=== PATIENT | female | born 1935 | race Caucasian/White ===

== ENCOUNTER 2018-08-27 22:18 | Inpatient (IN) | payer OTHER, MEDICARE ==
--- NOTE | 2018-08-27 22:31 | PDOC ---
History of Present Illness - General Stated Complaint: DIARRHEA Time Seen by Provider: 08/27/18 22:29 - History of Present Illness Initial Comments: 08/27/18 23:36 The patient is an 82 year old female with a history of HTN, HLD, Hemorrhoids who presents for evaluation of diarrhea, rectal bleeding, and generalized weakness. The patient is accompanied by family who assist in providing the history. They note that the patient began having rectal bleeding a profuse diarrhea today with associated generalized weakness prompting her presentation to the ED for further evaluation. The patient otherwise denies fevers, chills, SOB, chest pain, nausea, vomiting, abdominal pain, or changes with urination. Past History - Past Medical History Allergies/Adverse Reactions: Allergies Allergy/AdvReac Type Severity Reaction Status Date / Time No Known Allergies Allergy Verified 08/27/18 23:09 Home Medications: Ambulatory Orders Unobtainable 08/27/18 Review of Systems - Review of Systems Comments:: 08/27/18 23:38 Constitutional: No fevers, chills, fatigue, malaise HEENT: No Rhinorrhea, nasal congestion, visual changes Cardiovascular: No chest pain, syncope, palpitations, lightheadedness Respiratory: No Cough, SOB, Hemoptysis, Gastrointestinal: Diarrhea, rectal bleeding. No Abdominal pain, Nausea, Vomiting, Constipation, Melena Genitourinary: No Dysuria, Frequency, Urgency, Hesitancy, Hematuria, Flank pain Musculoskeletal: No Myalgia, arthralgia Skin: No rashes, itching, bruising, pallor Neurologic: No Headache, Dizziness, Numbness, Weakness, or Tingling Psychiatric: No Hallucinations. No SI or HI *Physical Exam - Physical Exam Comments: 08/27/18 23:39 General Appearance: Nourished. No Apparent Distress HEENT: No Pharyngeal Erythema, Tonsillar Exudate, Tonsillar Erythema Neck: No Cervical Lymphadenopathy Respiratory/Chest: Lungs Clear, Normal Breath Sounds. No Crackles, Rales, Rhonchi, Wheezing Cardiovascular: Regular Rhythm, Regular Rate. No Murmur, Gallops, Rubs Gastrointestinal/Abdominal: Normal Bowel Sounds, Soft. No Guarding, Rebound, Tenderness Rectal Exam: External hemorrhoid noted. Loose stool noted. Non-impacted soft stool in rectal vault. Musculoskeletal: No CVA Tenderness Extremity: Normal Capillary Refill Integumentary: Normal Color, Dry, Warm Neurologic: Fully Oriented, Alert, Normal Mood/Affect, Normal Response, ED Treatment Course - LABORATORY CBC & Chemistry Diagram: 08/27/18 23:13 08/27/18 23:13 Medical Decision Making - Medical Decision Making 08/27/18 23:50 The patient is an 82 year old female with a history of HTN, HLD, Hemorrhoids who presents for evaluation of diarrhea, rectal bleeding, and generalized weakness. Differential includes but is not limited to: Colitits, Diverticulitis , gastroenteritis, infectious, metabolic derangement. Given the patient's history and physical exam, we will obtain a cbc, cmp, lactate, ekg, and CT abdomen/pelvis to evaluate further. We will treat the patient with iv fluids and continue to monitor and reassess while here in the ED. 08/28/18 02:43 CBC demonstrates an elevated wbc to 19.5. CMP demonstrates a potassium of 5.6 and creatinine of 3.9. Lactate is elevated to 4.4. CT abdomen/pelvis demonstrates findings consistent with a sigmoid colitis as preliminarily read by our cash reconciliation specialist radiologist. We will treat with patient with flagyl and levaquin here in the ED and she will require admission for further management. We discussed the case with Dr. Poe who accepted the patient for admission. *DC/Admit/Observation/Transfer Diagnosis at time of Disposition: Colitis - Discharge Dispostion Condition at time of disposition: Stable Decision to Admit order: Yes - Referrals - Patient Instructions - Post Discharge Activity
[2018-08-27] MEDS ORDERED: SODIUM CHLORIDE 1,000 ML IV STA (23:04)
[2018-08-27 23:45] LABS: BASO % 0.2 % (0-2.0); HEMATOCRIT 30.7 % (32.4-45.2); HEMOGLOBIN 9.9 GM/dL (10.7-15.3); LYMPH % 3.4 % (8-40); MCHC 32.1 g/dl (32.0-36.0); MEAN CELL VOLUME 90.5 fl (80-96); MEAN PLT VOLUME 8.4 fl (7.5-11.1); MONO % 5.2 % (3.8-10.2); NEUT % 91.2 % (42.8-82.8); PLATELET COUNT 336 K/MM3 (134-434); RBC 3.39 M/mm3 (3.60-5.2); RDW 15.9 % (11.6-15.6); WHITE BLOOD COUNT 19.5 K/mm3 (4.0-10.0)
[2018-08-28 00:17] LABS: ALBUMIN 3.1 g/dl (3.4-5.0); ALK PHOS 140 U/L (45-117); ANION GAP 14 MMOL/L (8-16); BILIRUBIN,TOTAL 0.6 mg/dL (0.2-1); BLOOD UREA NITROGEN 66 mg/dL (7-18); CALCIUM 9.3 mg/dL (8.5-10.1); CHLORIDE 100 mmol/L (98-107); CO2 22 mmol/L (21-32); CREATININE 3.9 mg/dL (0.55-1.3); GLUCOSE,RANDOM 128 mg/dL (74-106); POTASSIUM 5.6 mmol/L (3.5-5.1); SGOT/AST 69 U/L (15-37); SGPT/ALT 18 U/L (13-61); SODIUM 136 mmol/L (136-145); TOT PROT 6.8 g/dl (6.4-8.2)
--- NOTE | 2018-08-28 00:23 | PDOC ---
Attending Attestation - Resident Resident Name: Shmuel Garibay - ED Attending Attestation I have performed the following: I have examined & evaluated the patient, The case was reviewed & discussed with the resident, I agree w/resident's findings & plan, Exceptions are as noted - HPI HPI: 08/28/18 00:19 The patient is a 82 year old female, with a significant past medical history of HTN, HLD, and anxiety, hip surgery 3 weeks ago who presents to the emergency department with 1 day of diarrhea and rectal bleeding. Patients family is unaware of the exact quantity of her rectal bleeding but state she has loose BM every time she eats or drinks. They state her stool is mostly brown with some streaks of blood. No large volumes of bleeding in diaper. Pt called in by Dr. Dunn, for labs, CT, and admission. She denies recent fevers, chills, headache or dizziness. She denies recent nausea, vomit, or constipation. She denies recent dysuria, frequency, urgency or hematuria. She denies recent chest pain or shortness of breath. Allergies: NKDA Past surgical history: Hip replacement. Social history: Nonsmoker. Denies EtOH use and recreational drug use. Primary Care Physician: Dr. Dunn - Physicial Exam PE: 08/28/18 00:22 agree with resident exam - Medical Decision Making 08/28/18 00:22 82yo F with MMP presents many episodes of diarrhea today and some streaks of bleeding. Pt has hemorrhoid, likely cause of bleeding. Stool occult negative. High concern for cdiff given recent hospitalization for hip surgery, and possible memo-op antibiotics although family unsure. Plan for labs, CT, admission. 08/28/18 02:38 WBC 20 with 14% bands baseball glove stuffer 3.9, BUN 66, K 5.6 lactic 4.4 Pt given 2L NS, will rpt lactic and BMP CT with sigmoid colitis Pt covered with levaquin and flagyl for presumed colitis Case discussed with Dr. Dunn, pt admitted Case discussed in detail with admitting physician including history, physical exam and ancillary studies. Admitting physician has assumed care for the patient, will follow all pending diagnostics and will complete the evaluation and treatment. Heart Score/ECG Review #1 08/28/18 02:51 Normal sinus rhythm, rate 95. Normal axis and intervals. Sub 1mm STD in I, Avl, when compared to EKG from 04/06/2010, no significant change.
[2018-08-28] MEDS ORDERED: SODIUM CHLORIDE 1,000 ML IV STA (00:41)
[2018-08-28 01:52] LABS: ANISOCYTOSIS 1+; MACROCYTOSIS 0; PLATELET ESTIMATE NORMAL
[2018-08-28 05:40] LABS: ANION GAP 11 MMOL/L (8-16); BLOOD UREA NITROGEN 66 mg/dL (7-18); CALCIUM 7.6 mg/dL (8.5-10.1); CHLORIDE 109 mmol/L (98-107); CO2 20 mmol/L (21-32); CREATININE 3.2 mg/dL (0.55-1.3); GLUCOSE,RANDOM 110 mg/dL (74-106); POTASSIUM 5.1 mmol/L (3.5-5.1); SODIUM 140 mmol/L (136-145)
[2018-08-28] MEDS: DEXTROSE 5%-0.45% SALINE 1,000 ML IV SCH (06:56)
--- NOTE | 2018-08-28 08:50 | HP ---
Admitting History and Physical - Primary Care Physician PCP: Sabrina Dunn - Admission Chief Complaint: diarrhea History of Present Illness: patient has been constipated for 5 days, yesterday developed diarrhea with some rectal bleeding, diarrhea became worse with extreme weakness, so pt was sent to er for further evaluation denies fever, chills, mildly nauseated,no abdominal cramps or discomfort of note patient had elective right total hip replacement 4 weeks ago History Source: Patient, Family Member Limitations to Obtaining History: No Limitations - Past Medical History Cardiovascular: Yes: HTN Renal/: Yes: Renal Inusuff (CKD) ...: No Heme/Onc: Yes: Anemia (likely due to CKD, received epoetin prior to elective hip surgery in June-2017) Musculoskeletal: Yes: Osteoarthritis - Past Surgical History Past Surgical History: Yes: Joint Replacement (right total hip 07.30.2018) - Smoking History Smoking history: Never smoked - Alcohol/Substance Use Hx Alcohol Use: No Home Medications - Allergies Allergies/Adverse Reactions: Allergies Allergy/AdvReac Type Severity Reaction Status Date / Time No Known Allergies Allergy Verified 08/27/18 23:09 - Home Medications Home Medications: Ambulatory Orders Unobtainable 08/27/18 Family Disease History - Family Disease History Family History: Unremarkable Review of Systems - Review of Systems Constitutional: reports: Lethargy, Loss of Appetite, Weakness Eyes: reports: No Symptoms HENT: reports: No Symptoms Neck: reports: No Symptoms Cardiovascular: reports: No Symptoms Respiratory: reports: No Symptoms Gastrointestinal: reports: Constipation (prior to diarrhea for 5 days), Diarrhea , Rectal Bleeding. denies: Abdominal Pain, Bloating, Indigestion, Nausea, Vomiting Blood Genitourinary: reports: No Symptoms Musculoskeletal: reports: Joint Pain (right hip) Integumentary: reports: No Symptoms Neurological: reports: No Symptoms, Other (forgetful) Endocrine: reports: No Symptoms Psychiatric: reports: Anxiety (very anxious at baseline) Physical Examination Vital Signs: Vital Signs Temperature 98.6 F 08/28/18 08:42 Pulse Rate 97 H 08/28/18 08:42 Respiratory Rate 18 08/28/18 08:42 Blood Pressure 152/69 08/28/18 08:42 O2 Sat by Pulse Oximetry (%) 97 08/28/18 04:46 Constitutional: Yes: Calm, Thin Eyes: Yes: Conjunctiva Clear HENT: Yes: Atraumatic, Normocephalic Neck: Yes: Trachea Midline Cardiovascular: Yes: Regular Rate and Rhythm Respiratory: Yes: CTA Bilaterally Gastrointestinal: Yes: Distention (slightly distended), Hypoactive Bowel Sounds , Other (recta) ...Rectal Exam: Yes: Hemorrhoids/External Renal/: Yes: WNL Musculoskeletal: Yes: Other Extremities: Yes: WNL Edema: No Peripheral Pulses WNL: Yes Peripheral Pulses: Left Doralis Pedis: 1+, Right Dorsalis Pedis: 1+ Integumentary: Yes: Other (senile purpura over arms and legs) Neurological: Yes: WNL, Other (forgetful) Psychiatric: Yes: WNL Labs: CBC, BMP 08/27/18 23:13 08/28/18 05:14 Laboratory Tests 08/27/18 08/27/18 08/27/18 22:45 23:13 23:13 WBC 19.5 H RBC 3.39 L Hgb 9.9 L Hct 30.7 L MCV 90.5 MCH 29.0 MCHC 32.1 RDW 15.9 H Plt Count 336 MPV 8.4 Absolute Neuts (auto) 17.7 H Neutrophils % 91.2 H Neutrophils % (Manual) 77.0 Band Neutrophils % 14.0 Lymphocytes % 3.4 L Lymphocytes % (Manual) 4.0 L Monocytes % 5.2 Monocytes % (Manual) 2 L Eosinophils % 0.0 Eosinophils % (Manual) 0.0 Basophils % 0.2 Basophils % (Manual) 0.0 Myelocytes % (Man) 3 H Promyelocytes % (Man) 0 Blast Cells % (Manual) 0 Nucleated RBC % 0 Metamyelocytes 0 Hypochromia 0 Platelet Estimate Normal Polychromasia 0 Poikilocytosis 1+ Anisocytosis 1+ Microcytosis 1+ Macrocytosis 0 Sodium 136 Potassium 5.6 H Chloride 100 Carbon Dioxide 22 Anion Gap 14 BUN 66 H Creatinine 3.9 H Creat Clearance w eGFR 10.98 Random Glucose 128 H Lactic Acid Calcium 9.3 Total Bilirubin 0.6 AST 69 H ALT 18 Alkaline Phosphatase 140 H Total Protein 6.8 Albumin 3.1 L Stool Occult Blood Negative 08/27/18 08/28/18 08/28/18 23:13 05:13 05:14 WBC RBC Hgb Hct MCV MCH MCHC RDW Plt Count MPV Absolute Neuts (auto) Neutrophils % Neutrophils % (Manual) Band Neutrophils % Lymphocytes % Lymphocytes % (Manual) Monocytes % Monocytes % (Manual) Eosinophils % Eosinophils % (Manual) Basophils % Basophils % (Manual) Myelocytes % (Man) Promyelocytes % (Man) Blast Cells % (Manual) Nucleated RBC % Metamyelocytes Hypochromia Platelet Estimate Polychromasia Poikilocytosis Anisocytosis Microcytosis Macrocytosis Sodium 140 Potassium 5.1 Chloride 109 H Carbon Dioxide 20 L Anion Gap 11 BUN 66 H Creatinine 3.2 H Creat Clearance w eGFR 13.80 Random Glucose 110 H Lactic Acid 4.4 H* 2.2 H* Calcium 7.6 L Total Bilirubin AST ALT Alkaline Phosphatase Total Protein Albumin Stool Occult Blood Imaging - Results Cat Scan: Report Reviewed (prelim shows sigmoid colitis and constipation) Problem List - Problems (1) Hypertension Code(s): I10 - ESSENTIAL (PRIMARY) HYPERTENSION Qualifiers: Hypertension type: essential hypertension Qualified Code(s): I10 - Essential (primary) hypertension (2) Anxiety Code(s): F41.9 - ANXIETY DISORDER, UNSPECIFIED (3) Anemia Code(s): D64.9 - ANEMIA, UNSPECIFIED Qualifiers: Anemia type: due to chronic kidney disease Chronic kidney disease stage: stage 3 (moderate) Qualified Code(s): N18.3 - Chronic kidney disease, stage 3 (moderate); D63.1 - Anemia in chronic kidney disease (4) Colitis Code(s): K52.9 - NONINFECTIVE GASTROENTERITIS AND COLITIS, UNSPECIFIED (5) Dehydration Code(s): E86.0 - DEHYDRATION Assessment/Plan iv fluids iv abx received levaquin in er will redose tomorrow based on renal fnct stool culture GI eval requested
[2018-08-28] MEDS: HEPARIN NA (PORCINE) 5,000 UNITS/ML 1ML VIAL SQ SCH ×2 (10:00→22:41)
--- NOTE | 2018-08-28 12:51 | EKG ---
Test Reason : Blood Pressure : / mmHG Vent. Rate : 095 BPM Atrial Rate : 095 BPM P-R Int : 132 ms QRS Dur : 070 ms QT Int : 358 ms P-R-T Axes : 068 057 079 degrees QTc Int : 449 ms NORMAL SINUS RHYTHM NONSPECIFIC ST ABNORMALITY ABNORMAL ECG Confirmed by MD MICHAEL, FRANCESCO ([id number]) on 08/28/2018 12:50:51 PM Referred By: Confirmed By:FRANCESCO RODRIGUEZ MD
[2018-08-28] MEDS ORDERED: PHENYLEPH/MINERAL OIL/PETROLAT 28 GM OINTMENT RC PRN (13:21)
--- NOTE | 2018-08-28 18:24 | CON.GI ---
Consult Consult Specialty:: Gastroenterology Referred by:: Dr. Sabrina Dunn Reason for Consultation:: Diarrhea and rectal bleeding - History of Present Illness Chief Complaint: None at present History of Present Illness: 82F was BIBA who reports that she was c/o diarrhea and rectal bleeding. Babita denies abdominal pain or vomiting. She has not had any bleeding since arriving. CT scan reveals a fecal impaction, WBC of 19k , renal failure and a Hb of 9.9. Her daughter Aletha helped to provide this history. Babita was found to be anemic in preparation for her THR which was delayed until her Hb improved from 8 to 11 with infusions, presumably iron by a superintendent overhead distribution, Dr. Murphy in [place]. Babita has never had an EGD or colonoscopy. There is no h/o malignancy in her family. She had a right THR at [facility] 3 weeks ago and has been getting physical therapy at home. Her grandchildren and daughter have been taking turns watching her at home. Since the surgery she has been having frequent small volume stools and intermittent blood on toilet paper after wiping. - History Source History Provided By: Patient, Significant Other Limitations to Obtaining History: No Limitations - Past Medical History Cardio/Vascular: Yes: HTN, Hyperlipdemia Renal/: Yes: Renal Inusuff (CKD) ...: No Heme/Onc: Yes: Anemia (Hb 8 preoperatively) Psych: Yes: Anxiety Musculoskeletal: Yes: Osteoarthritis - Past Surgical History Past Surgical History: Yes: Cataract Removal, (x2), Joint Replacement (right total hip 07.30.2018) - Alcohol/Substance Use Hx Alcohol Use: Yes (rare) History of Substance Use: reports: None - Smoking History Smoking history: Former smoker If you are a former smoker, when did you quit?: rare occaisonal cigarette remotely - Social History Usual Living Arrangement: Alone ADL: Family Assistance Occupation: retired typing secretary Place of : [facility] Home Medications - Allergies Allergies/Adverse Reactions: Allergies Allergy/AdvReac Type Severity Reaction Status Date / Time No Known Allergies Allergy Verified 08/27/18 23:09 - Home Medications Home Medications: Ambulatory Orders Unobtainable 08/27/18 Family Disease History - Family Disease History Family Disease History: Other: Father (lived into his 80's), Mother ( CVA age 87) Review of Systems - Review of Systems Constitutional: reports: Weakness Eyes: reports: No Symptoms HENT: reports: No Symptoms Neck: reports: No Symptoms Cardiovascular: reports: No Symptoms Respiratory: reports: No Symptoms Gastrointestinal: reports: Diarrhea (frequent small volume stools), Rectal Bleeding Musculoskeletal: reports: Joint Pain Physical Exam-GI Vital Signs: Vital Signs Temperature 98.5 F 08/28/18 14:51 Pulse Rate 93 H 08/28/18 14:51 Respiratory Rate 18 08/28/18 14:51 Blood Pressure 140/62 08/28/18 14:51 O2 Sat by Pulse Oximetry (%) 98 08/28/18 09:00 CBC,CMP WBC 19.5 K/mm3 (4.0-10.0) H 08/27/18 23:13 RBC 3.39 M/mm3 (3.60-5.2) L 08/27/18 23:13 Hgb 9.9 GM/dL (10.7-15.3) L 08/27/18 23:13 Hct 30.7 % (32.4-45.2) L 08/27/18 23:13 MCV 90.5 fl (80-96) 08/27/18 23:13 MCH 29.0 pg (25.7-33.7) 08/27/18 23:13 MCHC 32.1 g/dl (32.0-36.0) 08/27/18 23:13 RDW 15.9 % (11.6-15.6) H 08/27/18 23:13 Plt Count 336 K/MM3 (134-434) 08/27/18 23:13 MPV 8.4 fl (7.5-11.1) 08/27/18 23:13 Absolute Neuts (auto) 17.7 K/mm3 (1.5-8.0) H 08/27/18 23:13 Neutrophils % 91.2 % (42.8-82.8) H 08/27/18 23:13 Neutrophils % (Manual) 77.0 % (42.8-82.8) 08/27/18 23:13 Band Neutrophils % 14.0 % 08/27/18 23:13 Lymphocytes % 3.4 % (8-40) L 08/27/18 23:13 Lymphocytes % (Manual) 4.0 % (8-40) L 08/27/18 23:13 Monocytes % 5.2 % (3.8-10.2) 08/27/18 23:13 Monocytes % (Manual) 2 % (3.8-10.2) L 08/27/18 23:13 Eosinophils % 0.0 % (0-4.5) 08/27/18 23:13 Eosinophils % (Manual) 0.0 % (0-4.5) 08/27/18 23:13 Basophils % 0.2 % (0-2.0) 08/27/18 23:13 Basophils % (Manual) 0.0 % (0-2.0) 08/27/18 23:13 Myelocytes % (Man) 3 % (0-2) H 08/27/18 23:13 Promyelocytes % (Man) 0 % (0-2) 08/27/18 23:13 Blast Cells % (Manual) 0 % (0-0) 08/27/18 23:13 Nucleated RBC % 0 % (0-0) 08/27/18 23:13 Metamyelocytes 0 % (0-2) 08/27/18 23:13 Hypochromia 0 08/27/18 23:13 Platelet Estimate Normal 08/27/18 23:13 Polychromasia 0 08/27/18 23:13 Poikilocytosis 1+ 08/27/18 23:13 Anisocytosis 1+ 08/27/18 23:13 Microcytosis 1+ 08/27/18 23:13 Macrocytosis 0 08/27/18 23:13 Sodium 140 mmol/L (136-145) 08/28/18 05:14 Potassium 5.1 mmol/L (3.5-5.1) 08/28/18 05:14 Chloride 109 mmol/L (98-107) H 08/28/18 05:14 Carbon Dioxide 20 mmol/L (21-32) L 08/28/18 05:14 Anion Gap 11 MMOL/L (8-16) 08/28/18 05:14 BUN 66 mg/dL (7-18) H 08/28/18 05:14 Creatinine 3.2 mg/dL (0.55-1.3) H 08/28/18 05:14 Creat Clearance w eGFR 13.80 (>60) 08/28/18 05:14 Random Glucose 110 mg/dL (74-106) H 08/28/18 05:14 Lactic Acid 2.2 mmol/L (0.4-2.0) H* 08/28/18 05:13 Calcium 7.6 mg/dL (8.5-10.1) L 08/28/18 05:14 Total Bilirubin 0.6 mg/dL (0.2-1) 08/27/18 23:13 AST 69 U/L (15-37) H 08/27/18 23:13 ALT 18 U/L (13-61) 08/27/18 23:13 Alkaline Phosphatase 140 U/L (45-117) H 08/27/18 23:13 Total Protein 6.8 g/dl (6.4-8.2) 08/27/18 23:13 Albumin 3.1 g/dl (3.4-5.0) L 08/27/18 23:13 Current Medications Generic Name Dose Route Start Last Admin Trade Name Freq PRN Reason Stop Dose Admin Acetaminophen 650 mg 08/28/18 06:18 Tylenol - PO Q6H PRN PAIN 1-5 OR FEVER Heparin Sodium (Porcine) 5,000 unit 08/28/18 10:00 08/28/18 10:00 Heparin - SQ 5,000 unit BID HARITHA Administration Metronidazole 500 mg in 100 mls @ 100 mls/hr 08/28/18 09:00 08/28/18 17:04 Flagyl 500mg Premixed Ivpb - IVPB 100 mls/hr Q6H-IV HARITHA Administration Dextrose/Sodium Chloride 1,000 mls @ 100 mls/hr 08/28/18 06:30 08/28/18 06:56 D5-1/2ns - IV 100 mls/hr ASDIR HARITHA Administration Constitutional: Yes: Anxious Eyes: Yes: Conjunctiva Clear HENT: Yes: Normocephalic Neck: Yes: Supple Cardiovascular: Yes: Regular Rate and Rhythm Respiratory: Yes: CTA Bilaterally Gastrointestinal Inspection: Yes: Distention, Scars (healed vertical suprapubic incisions) ...Auscultate: Yes: Hypoactive Bowel Sounds ...Palpate: Yes: Soft, Other (distended lower abdominal bowel loops) ...Rectal Exam: Yes: Guaiac Negative (full of brown soft guaiac negative stool) , Hemorrhoids/External Edema: No Peripheral Pulses WNL: Yes Neurological: Yes: Alert Psychiatric: Yes: Other (Anxious) Labs: CBC, BMP 08/27/18 23:13 08/28/18 05:14 Imaging - Results Cat Scan: Report Reviewed (Dg Abreu Name: BABITA CRISTOBAL DEPARTMENT OF RADIOLOGY Phys: Shmuel Garibay RESIDENT : 1935 Age: 82 Sex: F [facility] Acct: [id number] Loc: [id number] [facility] Exam Date: 08/28/18 Status: [place] [address] Unit Number: [id number] EXAM#: TYPE/EXAM: RESULT: [id number] CT/ABDOMEN PELVIS CT W/O CONTR HISTORY PROVIDED: Diarrhea, rule out colitis TECHNIQUE: Sequential axial images were obtained from the domes of the diaphragm through the symphysis pubis following the administration of oral contrast material. The study is limited. Evaluation of the lung bases demonstrates 2 nodules within the right middle lobe. The larger nodule measures 9 mm. Clinical correlation and follow-up is recommended. No acute infiltrates or pleural effusions are identified. There is a hiatal hernia in the retrocardiac space. The liver, spleen, pancreas, adrenal glands and kidneys demonstrate no significant abnormalities. The left kidney is somewhat atrophic. There are bilateral renal cysts. There is no evidence of hydronephrosis or obstructive uropathy. The gallbladder is distended without evidence of calculi. There is no evidence of pneumoperitoneum, bowel obstruction or intra-abdominal abscess. There is no CT evidence of acute appendicitis, colitis or diverticulitis. There is no evidence of intra-abdominal or retroperitoneal lymphadenopathy or fluid collections. Examination of the pelvis demonstrates a large amount retained fecal material within the rectum. This is consistent with fecal impaction. There is no evidence of pelvic masses, fluid collections or lymphadenopathy. The patient is S/P total right hip replacement. There is no evidence of acute bony pathology. IMPRESSION: Limited study with fecal impaction. There is no evidence of colitis or acute pathology within the abdomen or pelvis. Please see above discussion. Reported By: Med Simms MD [id number] Technologist: Neville Delgadillo Transcribed Date/Time: 08/28/18 0905 Time Recorder: Med Simms Printed Date/Time: By: Signed by: Med Simms Signed on: 28-Aug-2018 09:07) Problem List - Problems (1) Constipation Assessment/Plan: Babita has paradoxical diarrhea due to a fecal impaction. Her bleeding is most likely hemorrhoidal. Given her anemia that I suspect was iron deficient I have advised an EGD and a colonoscopy to exclude a GI bleeding source such as malignancy. Babita told me that she would never allow such examinations and her daughter confirmed this stating that it took 3 years for her mother to agree to the hip replacement. I will order a mineral oil enema and Miralax. I will allow her to eat. Her C diff toxin is negative. Code(s): K59.00 - CONSTIPATION, UNSPECIFIED (2) Fecal impaction in rectum Code(s): K56.41 - FECAL IMPACTION (3) Anemia Code(s): D64.9 - ANEMIA, UNSPECIFIED Qualifiers: Anemia type: due to chronic kidney disease Chronic kidney disease stage: stage 3 (moderate) Qualified Code(s): N18.3 - Chronic kidney disease, stage 3 (moderate); D63.1 - Anemia in chronic kidney disease
[2018-08-28] MEDS ORDERED: MINERAL OIL ENEMA 133 ML ENEMA PR ONE (18:58)
[2018-08-28 19:24] LABS: URINE APPEARANCE CLEAR; URINE BILIRUBIN NEGATIVE (<2.0 mg/dL); URINE COLOR AMBER; URINE GLUCOSE (UA) NEGATIVE (NEGATIVE); URINE KETONE NEGATIVE (NEGATIVE); URINE LEUK ESTERASE 3+ (NEGATIVE); URINE NITRITE NEGATIVE (NEGATIVE); URINE PROTEIN NEGATIVE (NEGATIVE); URINE UROBILINOGEN 4.0 E.U/dl mg/dL (0.2-1.0)
[2018-08-28] MEDS: POLYETHYLENE GLYCOL 3350 119 GM BTL PO SCH (22:40)
[2018-08-29] MEDS: POLYETHYLENE GLYCOL 3350 119 GM BTL PO SCH ×3 (05:37→21:12)
[2018-08-29 07:40] LABS: BASO % 0.2 % (0-2.0); HEMATOCRIT 26.5 % (32.4-45.2); HEMOGLOBIN 8.3 GM/dL (10.7-15.3); LYMPH % 3.6 % (8-40); MCH 28.4 pg (25.7-33.7); MCHC 31.6 g/dl (32.0-36.0); MEAN CELL VOLUME 90.2 fl (80-96); MEAN PLT VOLUME 8.7 fl (7.5-11.1); MONO % 8.6 % (3.8-10.2); NEUT % 87.6 % (42.8-82.8); PLATELET COUNT 213 K/MM3 (134-434); RBC 2.93 M/mm3 (3.60-5.2); RDW 15.9 % (11.6-15.6); WHITE BLOOD COUNT 11.1 K/mm3 (4.0-10.0)
[2018-08-29 07:49] LABS: INR 1.16 (0.83-1.09); PROTHROMBIN TIME (PATIENT) 13.7 SEC (9.7-13.0)
[2018-08-29 07:57] LABS: ALK PHOS 90 U/L (45-117); ANION GAP 10 MMOL/L (8-16); BILIRUBIN,TOTAL 0.3 mg/dL (0.2-1); BLOOD UREA NITROGEN 56 mg/dL (7-18); CALCIUM 7.8 mg/dL (8.5-10.1); CHLORIDE 111 mmol/L (98-107); CO2 19 mmol/L (21-32); CREATININE 2.1 mg/dL (0.55-1.3); GLUCOSE,RANDOM 126 mg/dL (74-106); POTASSIUM 3.9 mmol/L (3.5-5.1); SGOT/AST 71 U/L (15-37); SGPT/ALT 18 U/L (13-61); SODIUM 140 mmol/L (136-145); TOT PROT 4.8 g/dl (6.4-8.2)
[2018-08-29] MEDS: DEXTROSE 5%-0.45% SALINE 1,000 ML IV SCH (08:28)
--- NOTE | 2018-08-29 08:41 | PN ---
Progress Note (short form) - Note Progress Note: CBC, BMP 08/29/18 06:30 08/29/18 06:30 Vital Signs Period Temp Pulse Resp BP Sys/Sharpe Pulse Ox Last 24 Hr 98.5 F-98.8 F 93-107 18-18 140-154/62-77 97 s1s2 rrr lungs cta and sl.diatended +bs no edema awake alert, offers no complaints BMs are getting pasty Imp fecal impaction, overflow diarrhea (of note overnight ct was read as colitis) cdiff negative clinically better HTN anxiety recent thr plan dc iv fluids today advance diet oral laxative pt eval dc planning tomorrow Problem List - Problems (1) Hypertension Code(s): I10 - ESSENTIAL (PRIMARY) HYPERTENSION Qualifiers: Hypertension type: essential hypertension Qualified Code(s): I10 - Essential (primary) hypertension (2) Anxiety Code(s): F41.9 - ANXIETY DISORDER, UNSPECIFIED (3) Anemia Code(s): D64.9 - ANEMIA, UNSPECIFIED Qualifiers: Anemia type: due to chronic kidney disease Chronic kidney disease stage: stage 3 (moderate) Qualified Code(s): N18.3 - Chronic kidney disease, stage 3 (moderate); D63.1 - Anemia in chronic kidney disease (4) Colitis Code(s): K52.9 - NONINFECTIVE GASTROENTERITIS AND COLITIS, UNSPECIFIED (5) Dehydration Code(s): E86.0 - DEHYDRATION
[2018-08-29] MEDS: HEPARIN NA (PORCINE) 5,000 UNITS/ML 1ML VIAL SQ SCH ×2 (09:08→21:10)
[2018-08-29] MEDS: metoPROLOL SUCCINATE 25 MG TAB.SR.24H (FP) PO SCH (09:37)
[2018-08-29 10:12] LABS: ACANTHOCYTES 0; ANISOCYTOSIS 0; HELMET CELLS 0; HOWELL-JOLLY BODIES 0; MACROCYTOSIS 0; OVALOCYTE 0; PLATELET ESTIMATE NORMAL; ROULEAU 0; SICKELED CELLS 0; TARGET CELLS 0; TEAR DROP CELLS 0; TOXIC GRANULATION 0
--- NOTE | 2018-08-29 12:37 | PN ---
GI Progress Note Subjective: GI NOte: Having BMs overnight and feels some relief. Daughter at the bedside. - Objective Vital Signs: Vital Signs Temperature 98.1 F 08/29/18 10:00 Pulse Rate 102 H 08/29/18 10:00 Respiratory Rate 18 08/29/18 10:00 Blood Pressure 125/83 08/29/18 10:00 O2 Sat by Pulse Oximetry (%) 96 08/29/18 09:00 Laboratory Tests 08/27/18 08/29/18 08/29/18 23:13 06:30 06:30 WBC 19.5 H 11.1 H Retic Count Ferritin 311.3 08/29/18 07:00 WBC Retic Count 1.09 Ferritin Constitutional: Calm Gastrointestinal Inspection: Yes: Distention (less than yesterday) ...Auscultate: Yes: Normoactive Bowel Sounds ...Palpate: Yes: Soft, Other (nontender) Labs: CBC, BMP 08/29/18 06:30 08/29/18 06:30 INR, PTT INR 1.16 (0.83-1.09) H 08/29/18 06:30 Problem List - Problems (1) Constipation Assessment/Plan: Paradoxical diarrhea due to a fecal impaction. Her bleeding is most likely hemorrhoidal. Continue Miralax. Tolerating diet. Since endoscopic evaluation is declined I have no GI objections to discharge tomorrow Code(s): K59.00 - CONSTIPATION, UNSPECIFIED (2) Fecal impaction in rectum Code(s): K56.41 - FECAL IMPACTION (3) Anemia Code(s): D64.9 - ANEMIA, UNSPECIFIED Qualifiers: Anemia type: due to chronic kidney disease Chronic kidney disease stage: stage 3 (moderate) Qualified Code(s): N18.3 - Chronic kidney disease, stage 3 (moderate); D63.1 - Anemia in chronic kidney disease
[2018-08-29] MEDS ORDERED: ONDANSETRON 4 MG/2 ML VIAL IVPB PRN (20:45)
[2018-08-29] MEDS: ONDANSETRON 4 MG/2 ML VIAL IVPUSH PRN (21:10)
[2018-08-29] MEDS: ACETAMINOPHEN 325 MG TABLET (FP) PO PRN (21:11)
[2018-08-30] MEDS: POLYETHYLENE GLYCOL 3350 119 GM BTL PO SCH ×3 (05:44→21:46)
[2018-08-30] MEDS: ONDANSETRON 4 MG/2 ML VIAL IVPUSH PRN (05:44)
[2018-08-30 06:08] LABS: BASO % 0.2 % (0-2.0); EOS % 0.2 % (0-4.5); HEMATOCRIT 27.9 % (32.4-45.2); HEMOGLOBIN 9.1 GM/dL (10.7-15.3); MCH 29.4 pg (25.7-33.7); MCHC 32.8 g/dl (32.0-36.0); MEAN CELL VOLUME 89.6 fl (80-96); MEAN PLT VOLUME 8.4 fl (7.5-11.1); MONO % 6.9 % (3.8-10.2); NEUT % 86.7 % (42.8-82.8); PLATELET COUNT 234 K/MM3 (134-434); RBC 3.11 M/mm3 (3.60-5.2); RDW 16.2 % (11.6-15.6); WHITE BLOOD COUNT 10.9 K/mm3 (4.0-10.0)
[2018-08-30 06:44] LABS: ALK PHOS 92 U/L (45-117); ANION GAP 9 MMOL/L (8-16); BILIRUBIN,DIRECT 0.2 mg/dL (0.0-0.2); BILIRUBIN,TOTAL 0.3 mg/dL (0.2-1); BLOOD UREA NITROGEN 42 mg/dL (7-18); CALCIUM 8.1 mg/dL (8.5-10.1); CHLORIDE 112 mmol/L (98-107); CO2 22 mmol/L (21-32); CREATININE 1.6 mg/dL (0.55-1.3); GLUCOSE,RANDOM 107 mg/dL (74-106); POTASSIUM 3.5 mmol/L (3.5-5.1); SGOT/AST 50 U/L (15-37); SGPT/ALT 20 U/L (13-61); SODIUM 143 mmol/L (136-145); TOT PROT 4.9 g/dl (6.4-8.2)
--- NOTE | 2018-08-30 09:31 | PN ---
Progress Note (short form) - Note Progress Note: CBC, BMP 08/30/18 05:30 08/30/18 05:30 Vital Signs Period Temp Pulse Resp BP Sys/Sharpe Pulse Ox Last 24 Hr 98.1 F-100.4 F 92-104 16-22 125-165/66-89 97 s1s2 rrr lungs cta and sl.diatended +bs no edema awake alert, offers no complaints rectal exam shows firm stool in vault, manually disimpacted as much as could be reached bladder slightly distended-monitor output and bladder scan later today Imp fecal impaction, overflow diarrhea (of note overnight ct was read as colitis) cdiff negative clinically better HTN anxiety recent thr plan encourage po liquid and diet oral laxative pt eval may disimpact again later dc planning tomorrow Problem List - Problems (1) Hypertension Code(s): I10 - ESSENTIAL (PRIMARY) HYPERTENSION Qualifiers: Hypertension type: essential hypertension Qualified Code(s): I10 - Essential (primary) hypertension (2) Anxiety Code(s): F41.9 - ANXIETY DISORDER, UNSPECIFIED (3) Anemia Code(s): D64.9 - ANEMIA, UNSPECIFIED Qualifiers: Anemia type: due to chronic kidney disease Chronic kidney disease stage: stage 3 (moderate) Qualified Code(s): N18.3 - Chronic kidney disease, stage 3 (moderate); D63.1 - Anemia in chronic kidney disease (4) Colitis Code(s): K52.9 - NONINFECTIVE GASTROENTERITIS AND COLITIS, UNSPECIFIED (5) Dehydration Code(s): E86.0 - DEHYDRATION
[2018-08-30] MEDS: HEPARIN NA (PORCINE) 5,000 UNITS/ML 1ML VIAL SQ SCH ×2 (10:52→21:46)
[2018-08-30] MEDS: metoPROLOL SUCCINATE 25 MG TAB.SR.24H (FP) PO SCH ×2 (10:53→11:00)
[2018-08-30] MEDS: ACETAMINOPHEN 325 MG TABLET (FP) PO PRN (13:04)
[2018-08-30 17:40] LABS: SERUM IRON SATURATION 6 % (15-55); TOTAL IRON BINDING CAPACITY 150 ug/dL (250-450); UIBC 141 ug/dL (118-369)
[2018-08-30 17:43] LABS: TRANSGLUTAMINASE IGA < 2 U/mL (0-3); TRANSGLUTAMINASE IGG < 2 U/mL (0-5)
[2018-08-31 06:06] LABS: HBSAG SCREEN Negative (Negative); HEP B CORE AB, TOT Negative (Negative)
[2018-08-31] MEDS: POLYETHYLENE GLYCOL 3350 119 GM BTL PO SCH (06:43)
--- NOTE | 2018-08-31 08:25 | PN ---
Progress Note (short form) - Note Progress Note: Vital Signs Period Temp Pulse Resp BP Sys/Sharpe Pulse Ox Last 24 Hr 97.2 F-98.5 F 94-102 16-22 116-165/54-89 s1s2 rrr lungs cta abd soft NT +BS no edema offers no complaints Imp fecal impaction, overflow diarrhea (of note overnight ct was read as colitis) cdiff negative clinically better HTN anxiety recent thr plan encourage po liquid and diet oral laxative lactic acidosis much improved with treatment dc home Problem List - Problems (1) Hypertension Code(s): I10 - ESSENTIAL (PRIMARY) HYPERTENSION Qualifiers: Hypertension type: essential hypertension Qualified Code(s): I10 - Essential (primary) hypertension (2) Anxiety Code(s): F41.9 - ANXIETY DISORDER, UNSPECIFIED (3) Anemia Code(s): D64.9 - ANEMIA, UNSPECIFIED Qualifiers: Anemia type: due to chronic kidney disease Chronic kidney disease stage: stage 3 (moderate) Qualified Code(s): N18.3 - Chronic kidney disease, stage 3 (moderate); D63.1 - Anemia in chronic kidney disease (4) Colitis Code(s): K52.9 - NONINFECTIVE GASTROENTERITIS AND COLITIS, UNSPECIFIED (5) Dehydration Code(s): E86.0 - DEHYDRATION
[2018-08-31] MEDS: metoPROLOL SUCCINATE 25 MG TAB.SR.24H (FP) PO SCH (09:39)
[2018-08-31] MEDS: HEPARIN NA (PORCINE) 5,000 UNITS/ML 1ML VIAL SQ SCH (09:40)
[2018-08-31 11:21] VITALS: BP 144/65; PULSE 103; TEMP 98.8
--- NOTE | 2018-08-31 15:37 | DS ---
Physical Examination Vital Signs: Vital Signs Temperature 98.8 F 08/31/18 10:00 Pulse Rate 103 H 08/31/18 10:00 Respiratory Rate 17 08/31/18 10:00 Blood Pressure 144/65 08/31/18 10:00 O2 Sat by Pulse Oximetry (%) 99 08/31/18 09:00 Constitutional: Yes: Calm Eyes: Yes: EOM Intact HENT: Yes: Normocephalic Neck: Yes: Trachea Midline Cardiovascular: Yes: Regular Rate and Rhythm Respiratory: Yes: CTA Bilaterally Gastrointestinal: Yes: Normal Bowel Sounds, Soft Edema: No Integumentary: Yes: WNL Neurological: Yes: WNL Labs: CBC, BMP 08/30/18 05:30 08/30/18 05:30 Discharge Summary Reason For Visit: COLITIS Hospital Course: admitted for fecal impaction, overflow diarrhea,(of note overnight ct was read as colitis), dehydration with azotemia and acute on chr.renal insuff. cdiff negative much improved with iv hydration, laxatives, manual disimpaction clinically stable to dc home Condition: Stable - Instructions Referrals: Sabrina Dunn MD [Primary Care Provider] - Disposition: VNS/HOME HEALTH CARE - Home Medications Comprehensive Discharge Medication List: Ambulatory Orders Metoprolol Succinate [Toprol XL -] 25 mg PO DAILY #30 tab.sr.24h 08/31/18 Polyethylene Glycol 3350 [Miralax 119 gm Btl -] 17 gm PO BID #1 bottle 08/31/18
== END 2018-08-31 11:47 | disposition home health service (06) | DRG 389 ==
LOC: JER 22:18 → SUPCPDRO 22:18 → JERBED 08-28 02:34 → J7W 08-28 05:34
PROVIDERS: ADMIT Internal Medicine; ATTEND Internal Medicine
DX: K56.41 Fecal impaction (principal); E87.2 Acidosis; K52.9 Noninfective gastroenteritis and colitis, unspecified; F41.9 Anxiety disorder, unspecified; E86.0 Dehydration; R33.9 Retention of urine, unspecified; K64.9 Unspecified hemorrhoids; D50.0 Iron deficiency anemia secondary to blood loss (chronic); I10 Essential (primary) hypertension; E78.5 Hyperlipidemia, unspecified; N28.9 Disorder of kidney and ureter, unspecified
CPT/HCPCS: 36415; 74176-TC; 80048; 80053; 80076; 81003; 81015; 82272; 82728; 82962; 83516; 83540; 83550; 83605; 84155; 84165; 84443; 85025; 85044; 85610; 86038; 86140; 86704; 86706; 86708; 86803; 87045; 87046; 87086; 87324; 87340; 87449; 93005; 93010; 97116-GP; 97161-GP; 99284-25; J1644; J7030

== ENCOUNTER 2018-09-07 13:31 | Observation (INO) | payer MEDICARE, OTHER ==
--- NOTE | 2018-09-07 14:14 | PDOC ---
Rapid Medical Evaluation Chief Complaint: Rectal Bleed Time Seen by Provider: 09/07/18 14:10 Medical Evaluation: Allergies Allergy/AdvReac Type Severity Reaction Status Date / Time No Known Allergies Allergy Verified 08/27/18 23:09 09/07/18 14:11 sent by acquisition professional for hgb 6.8. denies weakness, dizziness and no rectal bleeding at this time. Patient alert ox3. pale. breath sounds clear, A: anemia P: labs patient to the ER for further management of care. Discharge Disposition - Diagnosis Anemia Qualifiers: Anemia type: unspecified type Qualified Code(s): D64.9 - Anemia, unspecified - Referrals - Patient Instructions - Post Discharge Activity
--- NOTE | 2018-09-07 15:10 | PDOC ---
Attending Attestation - Resident Resident Name: EleazarumuGarcía - ED Attending Attestation I have performed the following: I have examined & evaluated the patient, The case was reviewed & discussed with the resident, I agree w/resident's findings & plan, Exceptions are as noted - HPI HPI: 09/07/18 15:08 This patient is an 82 year old female with PMHx of HTN, HLD, chronic anemia, s/ p hip replacement, hemorrhoids who was reffered here from PCP's office due to low hgb of 6.8. Patient was recently admitted for colitis. Patient reports hemorrhoid but denies rectal bleeding. Patient also endorses increased fatigue and leg swelling. Denies chest pain, palpitations, lightheadedness, fevers, chills, nausea, vomiting, shortness of breath. PCP: Sabrina Dunn - Physicial Exam PE: 09/07/18 16:23 GENERAL: The patient is awake, alert, and fully oriented, Nontoxic - in no acute distress. LUNGS: Breath sounds equal, clear to auscultation bilaterally. No wheezes, no rhonchi, no rales. HEART: Regular rate and rhythm, normal S1 and S2 without murmur, rub or gallop. EXTREMITIES: Normal range of motion, bl pitting edema in LE, no calf tenderness, NEUROLOGICAL: No facial assymetry, Normal speech, moivnga ll 4 extremities spontaneously symmetrically PSYCH: Normal mood, normal affect. SKIN: Warm, Dry, normal turgor, - Medical Decision Making 09/07/18 16:23 82y F anemia, htn, hl, hemorroids, presents with hbg of 6 as outpatient. denies cp, sob, paliptations, lightheadedness, rectal bleeding no recent melena, diarrhea, bpr, n/v no symptoms of anemia on ASA 09/07/18 16:[address] monsalve requests transfusion will place in obs
[2018-09-07 15:15] LABS: BASO % 0.7 % (0-2.0); EOS % 2.3 % (0-4.5); HEMATOCRIT 23.6 % (32.4-45.2); HEMOGLOBIN 7.8 GM/dL (10.7-15.3); LYMPH % 15.7 % (8-40); MCH 29.8 pg (25.7-33.7); MEAN CELL VOLUME 90.4 fl (80-96); MEAN PLT VOLUME 7.4 fl (7.5-11.1); MONO % 8.9 % (3.8-10.2); NEUT % 72.4 % (42.8-82.8); PLATELET COUNT 411 K/MM3 (134-434); RBC 2.61 M/mm3 (3.60-5.2); RDW 17.4 % (11.6-15.6); WHITE BLOOD COUNT 5.3 K/mm3 (4.0-10.0)
--- NOTE | 2018-09-07 15:34 | PDOC ---
History of Present Illness - General Chief Complaint: Rectal Bleed Stated Complaint: BLOOD TRANSFUSION Time Seen by Provider: 09/07/18 14:10 History Source: Patient, Family Exam Limitations: No Limitations - History of Present Illness Initial Comments: 09/07/18 15:26 Patient is an 82F with history of HTN, HLD, chronic anemia, s/p hip replacement , hemorrhoids here today complaining of a hgb of 6.8 as an outpatient. Patient was recently admitted for colitis. Patient reports hemorrhoid but denies rectal bleeding. Denies chest pain, fevers, chills, nausea, vomiting, shortness of breath. Patient endorses increased fatigue and leg swelling. Denies CHF history. PCP: Mona Past History - Past Medical History Allergies/Adverse Reactions: Allergies Allergy/AdvReac Type Severity Reaction Status Date / Time No Known Allergies Allergy Verified 09/07/18 14:11 Home Medications: Ambulatory Orders Metoprolol Succinate [Toprol XL -] 25 mg PO DAILY #30 tab.sr.24h 08/31/18 Polyethylene Glycol 3350 [Miralax 119 gm Btl -] 17 gm PO BID #1 bottle 08/31/18 Cardiac Disorders: Yes (HTN, HLD) COPD: No HTN: Yes Hypercholesterolemia: Yes - Surgical History Orthopedic Surgery: Yes (right hip surgery) - Suicide/Smoking/Psychosocial Hx Smoking History: Never smoked Have you smoked in the past 12 months: No If you are a former smoker, when did you quit?: rare occaisonal cigarette remotely Information on smoking cessation initiated: No Hx Alcohol Use: No Drug/Substance Use Hx: No Review of Systems - Review of Systems Comments:: 09/07/18 15:37 GENERAL/CONSTITUTIONAL: No fever or chills. + fatigue HEAD, EYES, EARS, NOSE AND THROAT: No change in vision. No ear pain or discharge. No sore throat. CARDIOVASCULAR: No chest pain or shortness of breath RESPIRATORY: No cough, wheezing, or hemoptysis. GASTROINTESTINAL: No nausea, vomiting, diarrhea or constipation. GENITOURINARY: No dysuria, frequency, or change in urination. MUSCULOSKELETAL: No joint or muscle swelling or pain. No neck or back pain. SKIN: No rash NEUROLOGIC: No headache, vertigo, loss of consciousness, or change in strength/ sensation. ENDOCRINE: No increased thirst. No abnormal weight change HEMATOLOGIC/LYMPHATIC: No anemia, easy bleeding, or history of blood clots. ALLERGIC/IMMUNOLOGIC: No hives or skin allergy. *Physical Exam - Vital Signs Last Vital Signs Temp Pulse Resp BP Pulse Ox 98.8 F 88 18 126/66 99 09/07/18 14:00 09/07/18 14:00 09/07/18 14:00 09/07/18 14:00 09/07/18 14:00 - Physical Exam Comments: 09/07/18 15:38 GENERAL: Awake, alert, and fully oriented, in no acute distress HEAD: No signs of trauma, normocephalic, atraumatic EYES: PERRLA, EOMI, sclera anicteric, conjunctiva clear ENT: Auricles normal inspection, hearing grossly normal, nares patent, oropharynx clear without exudates. Moist mucosa NECK: Normal ROM, supple, no lymphadenopathy, JVD, or masses LUNGS: No distress, speaks full sentences, clear to auscultation bilaterally HEART: Regular rate and rhythm, normal S1 and S2, no murmurs, rubs or gallops, peripheral pulses normal and equal bilaterally. ABDOMEN: Soft, nontender, normoactive bowel sounds. No guarding, no rebound. No masses EXTREMITIES: Normal inspection, Normal range of motion, no edema. No clubbing or cyanosis. NEUROLOGICAL: Cranial nerves II through XII grossly intact. Normal speech, no focal sensorimotor deficits SKIN: Warm, Dry, normal turgor, no rashes or lesions noted. RECTAL: Several small hemorrhoids, no masses, no [place] blood ED Treatment Course - LABORATORY CBC & Chemistry Diagram: 09/07/18 15:04 09/07/18 15:04 - ADDITIONAL ORDERS Additional order review: 09/07/18 15:04 RBC 2.61 L MCV 90.4 MCHC 33.0 RDW 17.4 H MPV 7.4 L D Neutrophils % 72.4 Lymphocytes % 15.7 D Monocytes % 8.9 Eosinophils % 2.3 D Basophils % 0.7 D - RADIOLOGY Radiology Studies Ordered: Category Date Time Status CHEST X-RAY PORTABLE* [RAD] Stat Radiology 09/07/18 15:10 Ordered Medical Decision Making - Medical Decision Making 09/07/18 15:38 Patient is 82F with history of hemorrhiods, htn, hld, recent admission for colitis here today with hgb reported at 6.8. Vitals normal and stable. No active GI bleed apparent in physical or history. Will evaluate for anemia and gi bleed. Likely transfuse and admit. 09/07/18 16:40 Laboratory Tests 09/07/18 09/07/18 09/07/18 15:04 15:04 15:04 WBC 5.3 Hgb 7.8 L Plt Count 411 D Retic Count 1.60 H D BUN 14 Creatinine 1.0 Stool Occult Blood Negative CBC shows hgb of 7.8, otherwise normal. CMP reassuring. Stool for occult blood negative. Given 1 unit for weakness. Admitted to Dr Bardales for obs. *DC/Admit/Observation/Transfer Diagnosis at time of Disposition: Anemia Qualifiers: Anemia type: unspecified type Qualified Code(s): D64.9 - Anemia, unspecified - Discharge Dispostion Condition at time of disposition: Stable Decision to Admit order: Yes - Referrals Referrals: Sabrina Dunn MD [Primary Care Provider] - - Patient Instructions - Post Discharge Activity
[2018-09-07] MEDS ORDERED: FUROSEMIDE 40 MG/4 ML INJECTABLE VIAL IVPUSH ONE (15:46)
[2018-09-07 16:00] LABS: ALBUMIN 2.2 g/dl (3.4-5.0); ALK PHOS 112 U/L (45-117); ANION GAP 7 MMOL/L (8-16); BILIRUBIN,TOTAL 0.2 mg/dL (0.2-1); BLOOD UREA NITROGEN 14 mg/dL (7-18); CALCIUM 8.5 mg/dL (8.5-10.1); CHLORIDE 109 mmol/L (98-107); CO2 26 mmol/L (21-32); GLUCOSE,RANDOM 86 mg/dL (74-106); POTASSIUM 4.2 mmol/L (3.5-5.1); SGOT/AST 14 U/L (15-37); SGPT/ALT 14 U/L (13-61); SODIUM 143 mmol/L (136-145); TOT PROT 5.5 g/dl (6.4-8.2)
[2018-09-07 16:46] LABS: INR 1.01 (0.83-1.09); PROTHROMBIN TIME (PATIENT) 11.9 SEC (9.7-13.0)
[2018-09-08 01:23] VITALS: BMI 19.6
[2018-09-08 06:54] VITALS: PULSE 93; TEMP 99.1
--- NOTE | 2018-09-08 08:31 | HP ---
Admitting History and Physical - Primary Care Physician PCP: Sabrina Dunn - Admission Chief Complaint: anemia History of Present Illness: sent by heatologist dr bridges for blood transfusion, office cbc was 6.8. reports increased weakness and increased pedal edema, otherwise well. Seen by me in er on 09.07.18 at 4 pm. 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) - Smoking History Smoking history: Never smoked Have you smoked in the past 12 months: No If you are a former smoker, when did you quit?: rare occaisonal cigarette remotely - Alcohol/Substance Use Hx Alcohol Use: No History of Substance Use: reports: None - Social History ADL: Family Assistance Occupation: retired unit secretary Home Medications - Allergies Allergies/Adverse Reactions: Allergies Allergy/AdvReac Type Severity Reaction Status Date / Time No Known Allergies Allergy Verified 09/07/18 14:11 - Home Medications Home Medications: Ambulatory Orders Metoprolol Succinate [Toprol XL -] 25 mg PO DAILY #30 tab.sr.24h 08/31/18 Polyethylene Glycol 3350 [Miralax 119 gm Btl -] 17 gm PO BID #1 bottle 08/31/18 Family Disease History - Family Disease History Family Disease History: Other: Father (lived into his 80's), Mother ( CVA age 87) Review of Systems - Review of Systems Constitutional: reports: Weakness Eyes: reports: No Symptoms HENT: reports: No Symptoms Neck: reports: No Symptoms Cardiovascular: reports: No Symptoms Respiratory: reports: No Symptoms Gastrointestinal: reports: No Symptoms, Other (moving her bowel well daily now) Genitourinary: reports: No Symptoms Integumentary: reports: No Symptoms Neurological: reports: No Symptoms, Other (forgetful) Hematology/Lymphatic: reports: No Symptoms Physical Examination Vital Signs: Vital Signs Temperature 99.1 F 09/08/18 06:00 Pulse Rate 93 H 09/08/18 06:00 Respiratory Rate 09/08/18 06:00 Blood Pressure 144/69 09/08/18 06:00 O2 Sat by Pulse Oximetry (%) 94 L 09/08/18 05:43 Constitutional: Yes: No Distress, Calm, Thin Eyes: Yes: Conjunctiva Clear HENT: Yes: Normocephalic Neck: Yes: Trachea Midline Cardiovascular: Yes: Regular Rate and Rhythm Respiratory: Yes: CTA Bilaterally Gastrointestinal: Yes: Normal Bowel Sounds, Soft Edema: Yes Edema: LLE: 3+ (ankle), RLE: 3+ (ankle) Peripheral Pulses WNL: Yes Neurological: Yes: WNL Psychiatric: Yes: WNL Labs: CBC, BMP 09/07/18 15:04 09/07/18 15:04 Problem List - Problems (1) CKD (chronic kidney disease) Code(s): N18.9 - CHRONIC KIDNEY DISEASE, UNSPECIFIED (2) Anemia Code(s): D64.9 - ANEMIA, UNSPECIFIED Qualifiers: Anemia type: unspecified type Qualified Code(s): D64.9 - Anemia, unspecified (3) Hypertension Code(s): I10 - ESSENTIAL (PRIMARY) HYPERTENSION Qualifiers: Hypertension type: essential hypertension Assessment/Plan transfuse 1 unit prbc outpt f/up in office
[2018-09-08 08:41] LABS: HEMOGLOBIN 8.7 GM/dL (10.7-15.3); MCHC 34.8 g/dl (32.0-36.0); MEAN CELL VOLUME 89.1 fl (80-96); MEAN PLT VOLUME 7.4 fl (7.5-11.1); PLATELET COUNT 356 K/MM3 (134-434); WHITE BLOOD COUNT 6.2 K/mm3 (4.0-10.0)
[2018-09-08 09:29] VITALS: BP 148/71
[2018-09-08] MEDS ORDERED: POLYETHYLENE GLYCOL 3350 119 GM BTL PO SCH (10:00)
[2018-09-08] MEDS ORDERED: metoPROLOL SUCCINATE 25 MG TAB.SR.24H (FP) PO SCH (10:00)
== END 2018-09-08 11:29 | disposition home or self-care (01) ==
LOC: JER 13:31 → JERBED 16:54 → J7W 22:10
PROVIDERS: ADMIT Internal Medicine; ATTEND Internal Medicine
DX: D64.89 Other specified anemias (principal); E78.5 Hyperlipidemia, unspecified; K64.8 Other hemorrhoids; I12.9 Hypertensive chronic kidney disease with stage 1 through stage 4 chronic kidney disease, or unspecified chronic kidney disease; N18.9 Chronic kidney disease, unspecified; Z96.649 Presence of unspecified artificial hip joint
CPT/HCPCS: 36415; 36430; 36511; 71045-TC-FY; 80053; 82272; 82728; 85025; 85027; 85044; 85610; 86850; 86900; 86901; 86922; 99285-25; G0378; P9038; P9058